=== PATIENT | female | born 1995 ===

== ENCOUNTER 2017-10-07 08:14 | Emergency (ER) | payer MEDICAID, OTHER ==
[2017-10-07 08:14] VITALS: BMI 25.6
[2017-10-07 08:36] VITALS: BP 128/80; PULSE 76; RESP 18; TEMP 98.8; O2SAT 98
[2017-10-07] MEDS ORDERED: Amoxicillin-Clav 875-125 mg Tab PO STA (09:17)
[2017-10-07] MEDS ORDERED: Amoxicillin-Clav 875-125 mg Tab PO ONE (09:22)
--- NOTE | 2017-10-07 09:24 | C.PDOC ---
Time Seen by Provider: 10/07/17 09:09 Chief Complaint (Nursing): Dental Pain History Per: Patient, Family Onset/Duration Of Symptoms: Days (about 1-2 weeks) Current Symptoms Are (Timing): Still Present Severity: Moderate Dental/Oral: 1 - Pain Description Of Pain/Injury (Context): Cavity filling fell out. Quality: Positive for: "Pain" Additional History Per: Prior Records Past Medical History Reviewed: Historical Data, Nursing Documentation, Vital Signs Vital Signs: Last Vital Signs Temp 98.8 F 10/07/17 08:27 Pulse 76 10/07/17 08:27 Resp 18 10/07/17 08:27 BP 128/80 10/07/17 08:27 Pulse Ox 98 10/07/17 08:27 - Medical History PMH: No Chronic Diseases Surgical History: Cholecystectomy - [facility] Procedures INJECT/INFUSE NEC (02/14/14) TETANUS TOXOID ADMINIST (12/24/14) Family History: States: Unknown Family Hx - Social History Hx Tobacco Use: No Hx Alcohol Use: No Hx Substance Use: No - Immunization History Hx Tetanus Toxoid Vaccination: No Hx Influenza Vaccination: No Hx Pneumococcal Vaccination: No Review Of Systems Except As Marked, All Systems Reviewed And Found Negative. Constitutional: Negative for: Fever ENT: Positive for: Mouth Pain. Negative for: Throat Pain, Throat Swelling Cardiovascular: Negative for: Chest Pain Respiratory: Negative for: Shortness of Breath Gastrointestinal: Negative for: Vomiting, Abdominal Pain Musculoskeletal: Negative for: Neck Pain Skin: Negative for: Rash Neurological: Negative for: Weakness, Numbness Physical Exam - Physical Exam Appears: Non-toxic, No Acute Distress Skin: Normal Color, Warm, Dry, No Rash Head: Atraumatic, Normacephalic Eye(s): bilateral: Normal Inspection, PERRL, EOMI Oral Mucosa: Moist, No Drooling, No Trismus Tongue: Normal Appearing Lips: Normal Appearing Teeth: Caries, Tender To Palpation (left lower), No Loose Gingiva: Tender, No Abscess Throat: Normal Neck: Normal ROM, Supple Lymphatic: No Adenopathy Extremity: Normal ROM Neurological/Psych: Oriented x3, Normal Speech, Normal Cognition, Normal Cranial Nerves ED Course And Treatment O2 Sat by Pulse Oximetry: 98 Pulse Ox Interpretation: Normal Reassessment Condition: Improved Disposition Counseled Patient/Family Regarding: Diagnosis, Need For Followup, Rx Given - Disposition Referrals: [facility] [Outside] [facility] [Outside] Disposition: HOME/ ROUTINE Disposition Time: 09:25 Condition: STABLE Additional Instructions: Follow up with a Dentist as soon as possible, definitely before 1 week, for further evaluation and treatment. Return to the ER if you develop fever, redness , swelling, pus drainage, worsening of symptoms or if you have any other concerns. Prescriptions: Amoxicillin/Clavulanate [Augmentin 875 MG-125 MG] 1 tab PO BID #14 tab Ibuprofen [Motrin Tab] 600 mg PO Q8 PRN #30 tab PRN Reason: Pain, Moderate (4-7) traMADol/Acetaminophen [Ultracet 325 MG-37.5 MG] 1 tab PO Q4 PRN #30 tab PRN Reason: Pain, Severe (8-10) Instructions: Toothache (ED) Forms: [facility] - Clinical Impression Clinical Impression: Toothache
== END 2017-10-07 09:33 | disposition home or self-care (01) ==
LOC: C.ER 08:14
DX: K08.89 Other specified disorders of teeth and supporting structures (principal)

== ENCOUNTER 2017-11-24 15:51 | Emergency (ER) | payer MEDICAID, OTHER ==
[2017-11-24 16:14] VITALS: BMI 25.2
[2017-11-24 16:16] VITALS: O2SAT 98
--- NOTE | 2017-11-24 16:26 | C.PDOC ---
History Of Present Illness <Taniya Langley - Last Filed: 11/24/17 17:50> <Juan Lofton DO - Last Filed: 11/24/17 18:30> CC: "My tooth hurts" HPI 22 year old female with no past medical history presents to the ED with a tooth ache. Patient states about a month prior she started to have pain in left lower tooth. She states she came to the hospital a month ago due to the pain because she did not have insurance. She states she was not able to follow up with a dentist since because she still does not have insurance. She states about 2 days ago she noticed a bump on her gum at the same tooth. She states her pain is an ache and it comes and goes and it is currently a 7/10. She has tried to take Aleve for her pain with no relief. She states it has been difficult for her to eat because it hurts for her to chew and bite down using that side of her mouth. She denies fever, nausea, vomiting, or pus coming from the gum. PMD: denies Past Medical History: denies Past Surgical History: cholecystectomy Medications: denies Allergies: Motrin (Taniya Langley) History Per: Patient History/Exam Limitations: no limitations Onset/Duration Of Symptoms: Days, Waxing/Waning Current Symptoms Are (Timing): Still Present Severity: Moderate Pain Scale Rating Of: 7 Quality: Positive for: Aching <Taniya Langley - Last Filed: 11/24/17 17:50> <Juan Lofton DO - Last Filed: 11/24/17 18:30> Chief Complaint (Nursing): Dental Pain Past Medical History - Medical History PMH: No Chronic Diseases Surgical History: Cholecystectomy Family History: States: Unknown Family Hx - Social History Hx Tobacco Use: No Hx Alcohol Use: No Hx Substance Use: No - Immunization History Hx Tetanus Toxoid Vaccination: No Hx Influenza Vaccination: No Hx Pneumococcal Vaccination: No <Taniya Langley - Last Filed: 11/24/17 17:50> Vital Signs: Last Vital Signs Temp 98.5 F 11/24/17 18:11 Pulse 72 11/24/17 18:11 Resp 18 11/24/17 18:11 BP 102/68 11/24/17 18:11 Pulse Ox 98 11/24/17 18:11 - [facility] Procedures INJECT/INFUSE NEC (02/14/14) TETANUS TOXOID ADMINIST (12/24/14) Review Of Systems Constitutional: Negative for: Fever, Chills ENT: Positive for: Mouth Pain (tooth pain ) Cardiovascular: Negative for: Chest Pain, Palpitations Respiratory: Negative for: Cough, Shortness of Breath Gastrointestinal: Negative for: Nausea, Vomiting, Diarrhea, Constipation <Taniya Langley - Last Filed: 11/24/17 17:50> Physical Exam - Physical Exam Appears: Non-toxic, No Acute Distress Skin: Normal Color Head: Atraumatic, Normacephalic Eye(s): bilateral: Normal Inspection, PERRL, EOMI Oral Mucosa: Moist 1 - painful to touch 2 - gum protuberance - painful to touch, hard, no pus or exudate seen Lymphatic: No Adenopathy (negative for anterior or posterior adenopathy ) Cardiovascular: Rhythm Regular, No Murmur Respiratory: Normal Breath Sounds, No Decreased Breath Sounds, No Accessory Muscle Use, No Stridor Gastrointestinal/Abdominal: Normal Exam, Bowel Sounds (normal), Soft, No Tenderness <Taniya Langley - Last Filed: 11/24/17 17:50> ED Course And Treatment O2 Sat by Pulse Oximetry: 98 <Taniya Langley - Last Filed: 11/24/17 17:50> Medical Decision Making <Taniya Langley - Last Filed: 11/24/17 17:50> <Juan Lofton DO - Last Filed: 11/24/17 18:30> Medical Decision Making: Left Lower Canine Tooth Pain secondary to Left Lower Canine gum abscess - urine negative - f/u mandible xray (Taniya Langley) Disposition Discussed With : Juan Lofton DO Doctor Will See Patient In The: ED - Disposition Disposition Time: 17:50 <Taniya Langley - Last Filed: 11/24/17 17:50> - Disposition Disposition Time: 17:40 <Juan Lofton DO - Last Filed: 11/24/17 18:30> - Disposition Referrals: [facility] [Outside] [facility] [Outside] Disposition: HOME/ ROUTINE Condition: GOOD Additional Instructions: Thank you for letting us take care of you today. The emergency medical care you received today was directed at your acute symptoms. If you were prescribed any medication, please fill it and take as directed. It may take several days for your symptoms to resolve. Return to the Emergency Department if your symptoms worsen, do not improve, or if you have any other problems. Please contact your doctor or call one of the physicians/clinics you have been referred to that are listed on the Patient Visit Information form that is included in your discharge packet. Bring any paperwork you were given at discharge with you along with any medications you are taking to your follow up visit. Our treatment cannot replace ongoing medical care by a primary care provider (PCP) outside of the emergency department. Thank you for allowing the [facility] team to be part of your care today. Follow up with a dentist on the list provided in 2-3 days for re-evaluation and further management. Prescriptions: Clindamycin [Cleocin] 300 mg PO Q6 #28 cap Ibuprofen [Motrin] 600 mg PO Q6 PRN #20 tab PRN Reason: Pain, Moderate (4-7) Instructions: Dental Pain (DC) Forms: [employer] (Icelandic) - Clinical Impression Clinical Impression: Dental abscess - PA / MANAGER ENDOSCOPY / Resident Statement SUSANNA has reviewed & agrees with the documentation as recorded. SUSANNA has examined the patient and agrees with the treatment plan. <Taniya Langley - Last Filed: 11/24/17 17:50> - PA / MANAGER ENDOSCOPY / Resident Statement SUSANNA has reviewed & agrees with the documentation as recorded. SUSANNA has examined the patient and agrees with the treatment plan. <Juan Lofton DO - Last Filed: 11/24/17 18:30>
--- NOTE | 2017-11-24 17:55 | RAD ---
Indication: Lower gum abscess Mandible radiographs Comparison: None available Findings: Dental fillings. No acute displaced fracture appreciated. Soft tissues appear grossly unremarkable. Limited visualized mastoid air cells and paranasal sinuses appear grossly clear. Impression: No acute findings identified. Please note that mandible CT with IV contrast is recommended for evaluation of provided history lower gum abscess as this cannot be assessed by radiographs.
[2017-11-24 18:12] VITALS: BP 102/68; PULSE 72; RESP 18; TEMP 98.5
== END 2017-11-24 18:16 | disposition home or self-care (01) ==
LOC: C.ER 15:51
DX: K04.7 Periapical abscess without sinus (principal)

== ENCOUNTER 2019-02-06 21:17 | Emergency (ER) | payer SELFPAY ==
[2019-02-06 21:17] VITALS: BMI 25.2
[2019-02-06 21:40] VITALS: BP 131/81; PULSE 70; RESP 20; TEMP 98.7; O2SAT 99
[2019-02-06] MEDS ORDERED: Apap-Butalbital-Caffeine 325-50-40mg Tab PO STA (22:35)
--- NOTE | 2019-02-06 22:38 | C.PDOC ---
History Of Present Illness 23 year old female presents to the ED c/o headache for the past 4 days. Patient reports headache was initially worse but now not so much. Patient states trying Tylenol, Aleve with no relief. Patient took Excedrin yesterday as well with no relief. Patient unable to describe pain, states "I know is there I feel it". Patient denies visual changes, nausea, vomit, rash, weakness, numbness. Time Seen by Provider: 02/06/19 21:56 Chief Complaint (Nursing): Headache History Per: Patient History/Exam Limitations: no limitations Onset/Duration Of Symptoms: Days (4) Severity: Moderate Quality: "Pain" Recent travel outside of the [place] States: No Additional History Per: Patient Past Medical History Reviewed: Historical Data, Nursing Documentation, Vital Signs Vital Signs: Last Vital Signs Temp 98.7 F 02/06/19 21:37 Pulse 70 02/06/19 21:37 Resp 20 02/06/19 21:37 BP 131/81 02/06/19 21:37 Pulse Ox 99 02/06/19 21:37 Primary Care Provider: FAMILY PROVIDER,NO - Medical History PMH: No Chronic Diseases Surgical History: Cholecystectomy - [facility] Procedures INJECT/INFUSE NEC (02/14/14) TETANUS TOXOID ADMINIST (12/24/14) Family History: States: Unknown Family Hx - Social History Hx Tobacco Use: No Hx Alcohol Use: No Hx Substance Use: No - Immunization History Hx Tetanus Toxoid Vaccination: No Hx Influenza Vaccination: No Hx Pneumococcal Vaccination: No Review Of Systems Constitutional: Negative for: Fever, Chills, Weakness Eyes: Negative for: Vision Change Respiratory: Negative for: Cough Gastrointestinal: Negative for: Nausea, Vomiting, Abdominal Pain Skin: Negative for: Rash Neurological: Positive for: Headache. Negative for: Weakness, Numbness, Dizziness Physical Exam - Physical Exam Appears: Well, Non-toxic, No Acute Distress Skin: Normal Color, Warm, No Rash Head: Atraumatic, Normacephalic Eye(s): bilateral: Normal Inspection, PERRL, EOMI Ear(s): Bilateral: Normal Nose: Normal Throat: Normal (no swelling or injection), No Erythema, No Exudate, Other (airway patent) Neck: Normal ROM, No Midline Cervical Tenderness, Supple Chest: Symmetrical Cardiovascular: Rhythm Regular Respiratory: No Accessory Muscle Use, Other (normal inspiratory effort) Extremity: Bilateral: Atraumatic, Normal ROM Neurological/Psych: Oriented x3, Normal Speech Gait: Steady ED Course And Treatment O2 Sat by Pulse Oximetry: 99 (ON RA) Pulse Ox Interpretation: Normal Medical Decision Making Medical Decision Making: Plan: * Fioriocet 1 tab PO This patient remains well appearing without neuro deficit. She describes her pain as midl to moderate at this time and clinically does not warrant imaging at this time. Disposition Counseled Patient/Family Regarding: Diagnosis, Need For Followup, Rx Given - Disposition Disposition: HOME/ ROUTINE Disposition Time: 22:37 Condition: STABLE Prescriptions: Acetaminophen/Butalbital/Caf [Fioricet] 1 tab PO QID PRN #20 tab PRN Reason: Pain, Moderate (4-7) Instructions: Headache, Adult (DC) Forms: [facility] (Armenian), General Discharge Instructions - Clinical Impression Clinical Impression: Headache - PA / RN SURGICAL / Resident Statement MD/DO has reviewed & agrees with the documentation as recorded. - Scribe Statement The provider has reviewed the documentation as recorded by the Scribe Jimy Kessler All medical record entries made by the Scribe were at my direction and personally dictated by me. I have reviewed the chart and agree that the record accurately reflects my personal performance of the history, physical exam, medical decision making, and the department course for this patient. I have also personally directed, reviewed, and agree with the discharge instructions and disposition.
[2019-02-06] MEDS ORDERED: Apap-Butalbital-Caffeine 325-50-40mg Tab ONE (22:41)
== END 2019-02-06 23:00 | disposition home or self-care (01) ==
LOC: C.ER 21:17
DX: R51 Headache (principal)